=== PATIENT | female | born 1980 ===

== ENCOUNTER 2018-11-11 11:54 | Emergency (ER) | payer OTHER ==
[2018-11-11] MEDS ORDERED: NORCO 5/325 PO ONE (12:25)
--- NOTE | 2018-11-11 12:25 | Event Note ---
ED Screening Note ED Screening Note: SENT BY CLINIC FOR HER FIBROID PAIN SHE IS ON MOTRIN SEE PAPER WORK THE PT HAS SHE HAS NO OBGYN WILL NEED PAIN MED AND OBGYN FOLLOW UP This initial assessment/diagnostic orders/clinical plan/treatment(s) is/are subject to change based on patients health status, clinical progression and re- assessment by fellow clinical providers in the ED. Further treatment and workup at subsequent clinical providers discretion. Patient/guardian urged not to elope from the ED as their condition may be serious if not clinically assessed and managed. Initial orders include: UA NEED HISTOLOGY AIDE TO ASSIST WITH PLAN OF CARE DISCUSSION. TR COY
--- NOTE | 2018-11-11 13:20 | Emergency Department Report ---
ED Female HPI - General Chief complaint: Abdominal Pain Stated complaint: PELVIC PAIN Time Seen by Provider: 11/11/18 12:18 Source: patient Mode of arrival: Ambulatory Limitations: No Limitations, Language Barrier - History of Present Illness Initial comments: 38-year-old female to emergency Department complaining of a 2 day history of suprapubic pain that radiates to her back, not associated with any urinary issues or vaginal bleeding. She reports no nausea or vomiting. No chest pain or shortness of breath. MD Complaint: pelvic pain Location: suprapubic Radiation: L flank, R flank Severity: mild Quality: dull Consistency: constant Improves with: none Worsens with: none Are you Now?: No Associated Symptoms: denies: vaginal bleeding, abdominal pain, nausea/vomiting, shortness of breath, syncope, weakness - Related Data Previous Rx's Medication Instructions Recorded Last Taken Type Ketorolac [Toradol] 10 mg PO Q6H PRN #15 tablet 11/11/18 Unknown Rx Allergies Allergy/AdvReac Type Severity Reaction Status Date / Time No Known Allergies Allergy Verified 11/11/18 11:56 ED Review of Systems ROS: Stated complaint: PELVIC PAIN Other details as noted in HPI Constitutional: denies: chills, fever Eyes: denies: eye pain, eye discharge, vision change ENT: denies: ear pain, throat pain Respiratory: denies: cough, shortness of breath, wheezing Cardiovascular: denies: chest pain, palpitations Endocrine: no symptoms reported Gastrointestinal: denies: abdominal pain, nausea, diarrhea Genitourinary: denies: urgency, dysuria, discharge Musculoskeletal: denies: back pain, joint swelling, arthralgia Skin: denies: rash, lesions Neurological: denies: headache, weakness, paresthesias Psychiatric: denies: anxiety, depression Hematological/Lymphatic: denies: easy bleeding, easy bruising ED Past Medical Hx - Past Medical History Previous Medical History?: Yes Additional medical history: uterine fibriods - Social History Smoking Status: Never Smoker Substance Use Type: None - Medications Home Medications: Home Medications Medication Instructions Recorded Confirmed Last Taken Type Ketorolac [Toradol] 10 mg PO Q6H PRN #15 tablet 11/11/18 Unknown Rx ED Physical Exam - General Limitations: No Limitations General appearance: alert, in no apparent distress - Head Head exam: Present: atraumatic, normocephalic - Eye Eye exam: Present: normal appearance, PERRL, EOMI Pupils: Present: normal accommodation - ENT ENT exam: Present: normal exam, mucous membranes moist - Neck Neck exam: Present: normal inspection - Respiratory Respiratory exam: Present: normal lung sounds bilaterally. Absent: respiratory distress - Cardiovascular Cardiovascular Exam: Present: regular rate, normal rhythm. Absent: systolic murmur, diastolic murmur, rubs, gallop - GI/Abdominal GI/Abdominal exam: Present: soft, tenderness (suprapubic region with palpation. No masses appreciated. No cough, sound of maternal. No Rovsing, no tenderness at McBurney's. No Cameron's sign. No CVA tenderness.), normal bowel sounds - Extremities Exam Extremities exam: Present: normal inspection, full ROM - Back Exam Back exam: Present: normal inspection - Neurological Exam Neurological exam: Present: alert, oriented X3, CN II-XII intact - Psychiatric Psychiatric exam: Present: normal affect, normal mood - Skin Skin exam: Present: warm, dry, intact, normal color. Absent: rash ED Course Vital Signs 11/11/18 12:21 Temperature 97.4 F L Pulse Rate 65 Respiratory 16 Rate Blood Pressure 114/76 [Right] O2 Sat by Pulse 97 Oximetry ED Medical Decision Making - Radiology Data Referring Physician: SHONDA RAZA Patient Name: MOHAN CALI Date of : 1980 Sex: Female Report Date: 2018-11-11 Report Status: Finalized Findings [address] [address] Ultrasound Report Signed Patient: MOHAN CALDERÓN MR#: [id number] : 1980 Acct:[id number] Age/Sex: 38 / F ADM Date: 11/11/18 Loc: ED Attending Dr: Ordering Physician: SUZANNE INMAN Date of Service: 11/11/18 Procedure(s): US transvaginal Accession Number(s): [id number] cc: SUZANNE INMAN PROCEDURE: US PELVIC COMPLETE, US TRANSVAGINAL TECHNIQUE: Transabdominal and transvaginal pelvic ultrasound. HISTORY: pelvic pain that radiates to back COMPARISONS: None currently available. FINDINGS: Uterus: 9.7 x 4.7 x 14.5 cm. Large fibroid at the fundus measures 9.5 x 9.7 x 11.8 cm. Endometrium: Heterogeneously echogenic and thickened measuring 15 mm. Right ovary: 4.8 x 2.5 x 3.1 cm. Follicular type cyst measures 1.5 cm. Otherwise within normal limits. Left ovary: Obscured. No adnexal lesions. No significant free fluid. IMPRESSION: * Fibroid. * Thickened heterogeneous endometrium may be related to fibroid which could be submucosal. * Dominant right ovarian follicle. * Left ovary is obscured. This document is electronically signed by Juan Enriquez MD., Nov 11 2018 05:57:08 PM ET Transcribed By: TYM Dictated By: JUAN ENRIQUEZ MD Electronically Authenticated By: JUNA ENRIQUEZ MD Signed Date/Time: 11/11/18 1658 DD/ 1555 - Medical Decision Making 38-year-old female says emergency department complaining of chest pain, crampy fluctuance here. Ultrasound shows positive uterine fibroids and what looks to be a little ovarian cysts. No infectious process is noted and the vital signs are stable. Positive fall with CHIEF NURSE for definitive management and treatment options Critical care attestation.: If time is entered above; I have spent that time in minutes in the direct care of this critically ill patient, excluding procedure time. ED Disposition Clinical Impression: Leiomyoma of cervix Disposition: DC-01 TO HOME OR SELFCARE Is pt being admited?: No Does the pt Need Aspirin: No Condition: Stable Instructions: Abdominal Pain (ED), Uterine Fibroids (ED) Prescriptions: Ketorolac [Toradol] 10 mg PO Q6H PRN #15 tablet PRN Reason: Pain Referrals: [facility] [Primary Care Provider] - 3-5 Days [facility] [Provider Group] - 3-5 Days Print Language: SAO TOMEAN
[2018-11-11 15:00] LABS: HCG Qualitative,Urine Negative (Negative)
[2018-11-11 15:04] LABS: Bacteria,Urine 1+ /HPF (Negative); Bilirubin,Urine NEG (Negative); Blood,Urine MOD (Negative); Color,Urine Yellow (Yellow); Mucus,Urine FEW /HPF; Protein,Urine <15 mg/dL mg/dL (Negative); Urobilinogen,Urine < 2.0 mg/dL (<2.0)
--- NOTE | 2018-11-11 16:58 | Ultrasound Report ---
PROCEDURE: US PELVIC COMPLETE, US TRANSVAGINAL TECHNIQUE: Transabdominal and transvaginal pelvic ultrasound. HISTORY: pelvic pain that radiates to back COMPARISONS: None currently available. FINDINGS: Uterus: 9.7 x 4.7 x 14.5 cm. Large fibroid at the fundus measures 9.5 x 9.7 x 11.8 cm. Endometrium: Heterogeneously echogenic and thickened measuring 15 mm. Right ovary: 4.8 x 2.5 x 3.1 cm. Follicular type cyst measures 1.5 cm. Otherwise within normal limits . Left ovary: Obscured. No adnexal lesions. No significant free fluid. IMPRESSION: * Fibroid. * Thickened heterogeneous endometrium may be related to fibroid which could be submucosal. * Dominant right ovarian follicle. * Left ovary is obscured. This document is electronically signed by Juan Mccormick MD., Nov 11 2018 05:57:08 PM ET
[2018-11-11 19:13] VITALS: BP 118/68
== END 2018-11-11 19:12 | disposition home or self-care (01) ==
LOC: ED 11:54
DX: D25.9 Leiomyoma of uterus, unspecified (principal)
CPT/HCPCS: 76830; 76856; 81001; 81025

== ENCOUNTER 2021-05-31 22:40 | Outpatient (CLI) | payer SELFPAY ==
[2021-05-31 23:09] VITALS: BP 101/67
[2021-05-31] MEDS ORDERED: LACTATED RINGERS 1,000 ML IV ONE (23:40)
[2021-06-01 00:17] LABS: Bilirubin,Urine NEG (Negative); Blood,Urine NEG (Negative); Color,Urine Straw (Yellow); Mucus,Urine FEW /HPF; Protein,Urine <15 mg/dL mg/dL (Negative); RBC,Urine < 1.0 /HPF (0.0-6.0); Urobilinogen,Urine < 2.0 mg/dL (<2.0)
--- NOTE | 2021-06-02 07:15 | Ultrasound Report ---
ULTRASOUND OBSTETRIC LIMITED ULTRASOUND BIOPHYSICAL PROFILE INDICATION / CLINICAL INFORMATION: Evaluate well being and amniotic fluid index. COMPARISON: None available. FINDINGS: BREATHING MOVEMENT = 2 GROSS BODY MOVEMENT = 2 TONE = 2 QUALITATIVE AMNIOTIC FLUID VOLUME = 2 TOTAL BIOPHYSICAL SCORE = 8/8 AMNIOTIC FLUID INDEX (cm) = 12.2 PRESENTATION: Cephalic. HEART RATE (beats per minute): 155 ADDITIONAL FINDINGS: None. IMPRESSION: 1. Biophysical Score = 8/8 2. Normal amniotic fluid index of 12.2 cm. Signer Name: Puneet Khan MD Signed: 06/02/2021 7:11 AM Workstation Name: [id number]
== END 2021-06-01 02:10 | disposition home or self-care (01) ==
LOC: TRG 22:40 → APU 22:42 → TRG 06-01 02:10
PROVIDERS: ATTEND Obstetrics & Gynecology
DX: O26.893 Other specified pregnancy related conditions, third trimester (principal); R30.9 Painful micturition, unspecified; O09.523 Supervision of elderly multigravida, third trimester; Z3A.37 37 weeks gestation of pregnancy
CPT/HCPCS: 59025; 76815; 76819; 81001; 96360; J7120

== ENCOUNTER 2021-06-14 06:37 | Outpatient (CLI) | payer SELFPAY ==
[2021-06-14 07:14] VITALS: BP 123/73
--- NOTE | 2021-06-14 09:05 | Ultrasound Report ---
US OB limited INDICATION: Ultrasound for presentation. TECHNIQUE: COMPARISON: None available. FINDINGS: position is cephalic. heart rate measures 1 43 bpm. Signer Name: Yong Rodriguez MD Signed: 06/14/2021 9:01 AM Workstation Name: [id number]
== END 2021-06-14 09:15 | disposition home or self-care (01) ==
LOC: TRG 06:37 → APU 06:39 → TRG 09:15
PROVIDERS: ATTEND Obstetrics & Gynecology
DX: O62.9 Abnormality of forces of labor, unspecified (principal); Z3A.39 39 weeks gestation of pregnancy
CPT/HCPCS: 36415; 59025; 76815; 84112

== ENCOUNTER 2021-06-22 05:58 | Inpatient (IN) | payer SELFPAY ==
[2021-06-22] MEDS ORDERED: LACTATED RINGERS 1,000 ML ONE (06:14)
[2021-06-22] MEDS ORDERED: fentaNYL 100 MCG/2 ML INJ IV ONE (06:43)
[2021-06-22] MEDS ORDERED: AMPICILLIN/NS 2 GM/100 ML 2 GM/100 ML BAG IV ONE (06:47)
[2021-06-22] MEDS ORDERED: CARBOPROST TROMETHAMINE 250 MCG/1 ML INJ IM PRN (07:03)
[2021-06-22] MEDS ORDERED: OXYTOCIN 10 UNIT/1 ML INJ IM PRN (07:30)
[2021-06-22] MEDS ORDERED: ONDANSETRON 4 MG/2 ML INJ IV PRN ×2 (07:30→09:00)
[2021-06-22] MEDS ORDERED: LOPERAMIDE 2 MG CAP PO PRN (07:30)
[2021-06-22] MEDS ORDERED: TERBUTALINE 1 MG/1 ML INJ SUB-Q PRN (07:30)
[2021-06-22] MEDS ORDERED: NalbUPHINE 10 MG/1 ML INJ IV PRN (07:30)
[2021-06-22] MEDS ORDERED: NALOXONE 0.4 MG/1 ML INJ IV PRN (07:30)
[2021-06-22] MEDS ORDERED: LIDOCAINE (2%) 20 MG/1 ML VIAL 20 ML MDV INFILTRATI NR (07:30)
[2021-06-22] MEDS ORDERED: fentaNYL 100 MCG/2 ML INJ IV PRN (08:00)
[2021-06-22] MEDS ORDERED: METHYLERGONOVINE MALEATE 0.2 MG/ML VIAL IM PRN (08:00)
[2021-06-22] MEDS ORDERED: LACTATED RINGERS 1,000 ML IV SCH (08:00)
[2021-06-22] MEDS ORDERED: OXYTOCIN DRIP 30 UNITS/500 ML BAG IV SCH (08:00)
[2021-06-22] MEDS ORDERED: ePHEDrine SULFATE 50 MG/1 ML INJ IV PRN (08:00)
[2021-06-22] MEDS ORDERED: ACETAMINOPHEN 325 MG TAB PO PRN ×2 (08:00→09:00)
[2021-06-22] MEDS ORDERED: BUTORPHANOL 2 MG/1 ML INJ IV PRN (08:00)
[2021-06-22] MEDS ORDERED: miSOPROStol 200 MCG TAB PR PRN (08:00)
--- NOTE | 2021-06-22 08:38 | History and Physical Report ---
History of Present Illness Date of examination: 06/22/21 Date of admission: 06/22/21 08:07 History of present illness: 40-year-old -1-0-1 at 40-1/7 weeks presents in active labor with spontaneous rupture of membranes care at [facility] GBS positive records in chart Past History Past Surgical History: no surgical history Social history: no significant social history - Obstetrical History Expected Date of Delivery: 06/21/21 Actual Gestation: 40 Week(s) 1 Day(s) : 2 Para: 1 Medications and Allergies Allergies Allergy/AdvReac Type Severity Reaction Status Date / Time No Known Allergies Allergy Verified 11/11/18 11:56 Home Medications Medication Instructions Recorded Confirmed Last Taken Type Ketorolac [Toradol] 10 mg PO Q6H PRN #15 tablet 11/11/18 Unknown Rx Active Meds: Active Medications Acetaminophen (Acetaminophen 325 Mg Tab) 650 mg PO Q4H PRN PRN Reason: Pain, Mild (1-3) Butorphanol Tartrate (Butorphanol 2 Mg/1 Ml Inj) 2 mg IV Q2H PRN PRN Reason: Pain , Severe (7-10) Last Admin: 06/22/21 08:22 Dose: 2 mg Carboprost Tromethamine (Carboprost Tromethamine 250 Mcg/1 Ml Inj) 250 mcg IM ONCE PRN PRN Reason: Uterine Bleeding Ephedrine Sulfate (Ephedrine Sulfate 50 Mg/1 Ml Inj) 10 mg IV Q2M PRN PRN Reason: Hypotension Fentanyl (Fentanyl 100 Mcg/2 Ml Inj) 100 mcg IV Q2H PRN PRN Reason: Pain,Severe (7-10) LABOR PAIN Lactated Ringer's (Lactated Ringers) 1,000 mls @ 125 mls/hr IV DIRECT RIK Oxytocin/Sodium Chloride (Pitocin/Ns 30 Unit/500ml) 30 units in 500 mls @ 40 mls/hr IV TITR RIK; Protocol Ampicillin Sodium (Ampicillin/Ns 1 Gm/50 Ml) 1 gm in 50 mls @ 100 mls/hr IV Q4H RIK; Protocol Lidocaine (Lidocaine (2%) 20 Mg/1 Ml Vial 20 Ml Mdv) 20 ml INFILTRATI ONCE NR Stop: 06/22/21 16:00 Loperamide HCl (Loperamide 2 Mg Cap) 2 mg PO ONCE PRN PRN Reason: give with Hemabate Methylergonovine Maleate (Methylergonovine Maleate 0.2 Mg/Ml Vial) 0.2 mg IM ONCE PRN PRN Reason: Uterine Bleeding Mineral Oil (Mineral Oil 30 Ml Oral Liqd) 30 ml PO QHS PRN PRN Reason: Constipation Misoprostol (Misoprostol 200 Mcg Tab) 800 mcg PA ONCE PRN PRN Reason: Uterine Bleeding Nalbuphine HCl (Nalbuphine 10 Mg/1 Ml Inj) 10 mg IV Q2H PRN PRN Reason: Pain, Moderate (4-6) Naloxone HCl (Naloxone 0.4 Mg/1 Ml Inj) 0.1 mg IV Q2MIN PRN PRN Reason: Res Rate </= 8 or 02 SAT < 92% Ondansetron HCl (Ondansetron 4 Mg/2 Ml Inj) 4 mg IV Q8H PRN PRN Reason: Nausea And Vomiting Oxytocin (Oxytocin 10 Unit/1 Ml Inj) 10 unit IM ONCE PRN PRN Reason: Uterine Bleeding Terbutaline Sulfate (Terbutaline 1 Mg/1 Ml Inj) 0.25 mg SUB-Q ONCE PRN PRN Reason: Hyperstimulation/Hypertonicity Review of Systems All systems: negative (Labor contractions and leaking of fluid) - Vital Signs Vital signs: Vital Signs Temp 98.2 F 06/22/21 06:08 Temp Pulse Resp BP Pulse Ox 98.2 F 81 20 123/72 92 06/22/21 06:08 06/22/21 08:35 06/22/21 06:41 06/22/21 08:21 06/22/21 08:35 - Physical Exam Breasts: Positive: deferred Cardiovascular: Regular rate Lungs: Positive: Clear to auscultation Abdomen: Positive: normal appearance, soft, normal bowel sounds Vulva: both: normal Vagina: Positive: normal moisture Uterus: Positive: enlarged Anus/Rectum: Positive: normal perianal skin Extremities: Positive: normal Deep Tendon Reflex Grade: Normal +2 - Obstetrical FHR: category 1 Results All other labs normal. Assessment and Plan Admission GBS coverage Pain medicine as desired Continuous monitoring Expect Maternal and status wellbeing at bedside Marcia Min MD
--- NOTE | 2021-06-22 08:45 | Procedure Note ---
OB Delivery Note - Delivery Date of Delivery: 06/22/21 Surgeon: SHONA GARRIDO Estimated blood loss: other (250ml) - Vaginal Delivery position: OA Delivery induction: none Delivery augmentation: pitocin Delivery monitor: external FHT, external uterine Route of delivery: Delivery placenta: spontaneous Delivery cord: 3 umbilical vessels Episiotomy: none Delivery laceration: 1st degree Delivery repair: vicryl Anesthesia: local Delivery comments: Patient pushed to deliver a viable male over an intact perineum with weight 3820gms and 8,9. Position YOON, no nuchal cord. Spontaneous cry at delivery. Delivery of the anterior shoulder atraumatic, remainder of delivery uncomplicated. Cord clamped cut and baby handed to waiting RICHARD team. Spontaneous delivery of an intact placenta with three-vessel cord. Inspection of the perineum cervix and vagina revealed no lacerations. Firm fundus, EBL 250ml. All sponge needle and instrument counts correct x2. Mom and baby stable to .
[2021-06-22] MEDS ORDERED: KETOROLAC 30 MG/1 ML INJ IV PRN (09:00)
[2021-06-22] MEDS ORDERED: BENZOCAINE/MENTHOL 20/0.5% TOP SPRAY 56 GM TP PRN (09:00)
[2021-06-22] MEDS ORDERED: WITCH HAZEL/ GLYCERIN PAD TP PRN (09:00)
[2021-06-22] MEDS ORDERED: oxyCODONE /ACETAMINOPHEN 5-325MG TAB PO PRN (09:00)
[2021-06-22] MEDS ORDERED: LANOLIN/ZINC/DIMETHICONE (LANSINOH) 7 GM TP PRN (09:00)
[2021-06-22] MEDS ORDERED: HYDROcodone/ACETAMINOPHEN 5-325 MG TAB PO PRN (09:00)
[2021-06-22] MEDS ORDERED: diphenhydrAMINE 25 MG CAP PO PRN (09:00)
[2021-06-22] MEDS ORDERED: PROMETHAZINE 25 MG TAB PO PRN (09:30)
[2021-06-22] MEDS ORDERED: PROMETHAZINE 25 MG RECT SUPP PR PRN (09:30)
[2021-06-22] MEDS ORDERED: HYDROCORTISONE 25 MG RECTAL SUPP PR PRN (10:00)
[2021-06-22 10:13] LABS: Basophils % (Auto) 0.1 % (0.0-1.8); Hematocrit 37.7 % (30.3-42.9); Hemoglobin 12.5 gm/dl (10.1-14.3); Lymphocytes # (Auto) 0.7 K/mm3 (1.2-5.4); Mean Corpuscular HGB Conc 33 % (30-34); Mean Corpuscular Volume 96 fl (79-97); Monocytes # (Auto) 0.4 K/mm3 (0.0-0.8); Monocytes % (Auto) 4.3 % (0.0-7.3); Platelet Count 119 K/mm3 (140-440); Red Blood Count 3.92 M/mm3 (3.65-5.03); Red Cell Distribution Width 12.9 % (13.2-15.2)
[2021-06-22 10:37] LABS: Alanine Aminotransferase 12 units/L (7-56); Albumin 3.3 g/dL (3.9-5); Blood Urea Nitrogen 8 mg/dL (7-17); Calcium 8.3 mg/dL (8.4-10.2); Hemolysis Index 0
[2021-06-22] MEDS: IBUPROFEN 600 MG TAB PO SCH ×2 (10:52→16:32)
[2021-06-22 10:58] LABS: BUN/Creatinine Ratio 16
[2021-06-22] MEDS ORDERED: AMPICILLIN/NS 1 GM/50 ML 1 GM/50 ML BAG IV SCH (12:00)
[2021-06-22 19:38] LABS: Hematocrit 34.7 % (30.3-42.9); Hemoglobin 11.4 gm/dl (10.1-14.3)
[2021-06-22] MEDS ORDERED: MINERAL OIL 30 ML ORAL LIQD PO PRN (22:00)
[2021-06-22] MEDS ORDERED: MAGNESIUM HYDROXIDE (MOM) ORAL LIQD UDC PO PRN (22:00)
[2021-06-23] MEDS: IBUPROFEN 600 MG TAB PO SCH ×3 (01:02→23:21)
--- NOTE | 2021-06-23 10:30 | Progress Note ---
Assessment and Plan A: PP Day #1 Stable P: Follow Routine Orders D/C Home in the AM RTO in 6 Weeks Subjective - Subjective Date of service: 06/23/21 Patient reports: appetite normal, voiding normally, pain well controlled, flatus, ambulating normally Reform: doing well, bottle feeding (and ) Objective - Vital Signs Latest vital signs: Vital Signs Temp Pulse Resp BP BP Pulse Ox Pulse Ox 06/23/21 08:09 97.6 F 68 18 111/63 97 06/23/21 07:45 97 06/23/21 02:12 97.9 F 60 16 99/50 95 06/23/21 01:02 18 06/22/21 21:06 98.0 F 75 18 104/58 97 06/22/21 20:10 97.9 F 71 16 107/55 98 06/22/21 15:10 97.6 F 63 16 114/52 97 06/22/21 11:41 98.1 F 65 20 104/61 94 Intake and Output 06/22/21 06/23/21 06/23/21 22:59 06:59 14:59 Intake Total 360 240 Output Total 1500 Balance -1140 240 Intake: Oral 120 Intake, Free Water 240 240 Output: Urine 1500 Void 1500 Other: Total, Intake Amount 120 Total, Output Amount 600 # Voids Void 2 - Exam Breasts: Present: normal Cardiovascular: Present: Regular rate Lungs: Present: Clear to auscultation, Normal air movement Abdomen: Present: normal appearance, soft, normal bowel sounds Uterus: Present: normal, firm, fundal height below umbilicus Extremities: Present: normal - Labs Labs: Abnormal lab results 06/22/21 Range/Units 09:06 Sodium 134 L (137-145) mmol/L Potassium 3.5 L (3.6-5.0) mmol/L Carbon Dioxide 18 L (22-30) mmol/L Creatinine 0.5 L (0.6-1.2) mg/dL Calcium 8.3 L (8.4-10.2) mg/dL Alkaline Phosphatase 139 H (35-129) units/L Total Protein 6.1 L (6.3-8.2) g/dL Albumin 3.3 L (3.9-5) g/dL
--- NOTE | 2021-06-23 10:32 | Discharge Summary ---
Providers - Providers Date of Admission: 06/22/21 08:07 Date of discharge: 06/24/21 Attending physician: SHONA GARRIDO MD Primary care physician: SHONA GARRIDO MD Hospitalization Reason for admission: rupture of membranes Delivery: Episiotomy: none Laceration: none Other procedures: none complications: none Discharge diagnosis: IUP at term delivered [place] baby: male Condition at discharge: Good Disposition: 01 HOME / SELF CARE / HOMELESS Plan - Provider Discharge Summary Activity: routine, no sex for 6 weeks, no heavy lifting 4 weeks, no strenuous exercise Diet: routine Instructions: routine Additional instructions: [] Smoking cessation referral if applicable(refer to patient education folder for contact #) [] Refer to [facility] Booklet Call your doctor immediately for: * Fever > 100.5 * Heavy vaginal bleeding ( >1 pad per hour) * Severe persistent headache * Shortness of breath * Reddened, hot, painful area to leg or breast * Drainage or odor from incision. * Keep incision clean and dry at all times and follow doctor's instructions regarding bathing/showering - Follow up plan Follow up: SHONA GARRIDO MD [Primary Care Provider] - 6 Weeks
[2021-06-24] MEDS: IBUPROFEN 600 MG TAB PO SCH (05:25)
[2021-06-24 11:46] VITALS: BP 118/77
== END 2021-06-24 12:30 | disposition home or self-care (01) | DRG 807 ==
LOC: TRG 05:58 → APU 05:59 → LD 06:02 → TRG 08:04 → LD 08:07 → OB 10:11
PROVIDERS: ADMIT Obstetrics & Gynecology; ATTEND Obstetrics & Gynecology
PROC: 10E0XZZ Delivery of Products of Conception, External Approach (ICD-10-PCS; principal; 2021-06-22)
PROC: 0HQ9XZZ Repair Perineum Skin, External Approach (ICD-10-PCS; 2021-06-22)
DX: O99.824 Streptococcus B carrier state complicating childbirth (principal); Z37.0 Single live birth; Z3A.40 40 weeks gestation of pregnancy; Z20.822 Contact with and (suspected) exposure to COVID-19; O70.0 First degree perineal laceration during delivery
CPT/HCPCS: 36415; 80053; 85014; 85018; 85025; 86850; 86900; 86901; G0378; J3490; J0290; J0595; J2590; J3010; J7120; U0003